=== PATIENT | male | born 1995 | race Caucasian/White ===

== ENCOUNTER 2022-04-21 18:44 | Inpatient (IN) | payer OTHER ==
[~2022-04-21] VITALS: Ht 175.3 cm; Wt 46.7 kg
[~2022-04-21 18:44] MED LIST: ACET-512 PO; ALBU0.0912 INH; ATRMDI IH; BACL10TA4 PO; BISA-213 RC; CHOL100013 PO; DOCU-299 PO; GABA400C PO; KEP500L GT; METO50TE2 PO; MULT-2246 PO; MUPI2CRE22 NS; SACC250C10 PO; TAMS0.4C96 PO
[2022-04-21 18:50] VITALS: BP 122/80
[2022-04-21 19:38] LABS: BASOPHILS % (AUTO) 0.2 % (0.0-2.0); EOSINOPHILS # (AUTO) 0.3 K/uL (0-0.4); EOSINOPHILS % (AUTO) 2.5 % (0.0-4.0); HEMOGLOBIN 14.2 g/dL (12.0-18.0); LYMPHOCYTES # (AUTO) 1.2 K/uL (2.0-11.5); LYMPHOCYTES % (AUTO) 9.4 % (20.5-51.1); MEAN CORPUSCULAR HEMOGLOBIN 27 pg (27-31); MEAN CORPUSCULAR HGB CONC 33 g/dL (33-37); MEAN CORPUSCULAR VOLUME 81.4 fL (80-94); MONOCYTES # (AUTO) 1.2 K/uL (0.8-1.0); MONOCYTES % (AUTO) 9.5 % (1.7-9.3); NEUTROPHILS # (AUTO) 10.1 K/uL (1.8-7.7); NEUTROPHILS % (AUTO) 78.4 % (42.2-75.2); PLATELET COUNT (AUTO) 322 K/uL (140-450); RED BLOOD CELL COUNT(AUTO) 5.29 MIL/uL (4.20-6.10); RED CELL DISTRIBUTION WIDTH 16.5 % (11.6-13.7); WHITE BLOOD COUNT (AUTO) 12.8 K/uL (4.8-10.8)
[2022-04-21 19:58] LABS: ALBUMIN 3.5 g/dL (3.4-5.0); ANION GAP 11.7 (8-16); CARBON DIOXIDE 29.2 mmol/L (21-32); CREATININE 0.5 mg/dL (0.6-1.3); POTASSIUM 3.9 mmol/L (3.5-5.1); TOTAL BILIRUBIN 0.2 mg/dL (0.0-1.0)
[2022-04-21] MEDS ORDERED: NACL 0.9% 1,000 ML IV ONE ×2 (20:05→22:25)
[2022-04-21] MEDS ORDERED: MORPHINE SULFATE 4 MG/ML SYR IVP ONE (20:05)
[2022-04-21] MEDS ORDERED: METOPROLOL 5 MG/5 ML VIAL IVP ONE (22:25)
[2022-04-21] MEDS ORDERED: oxyCODONE/APAP 5/325 MG 1 TAB TAB GT ONE (22:25)
[2022-04-21] MEDS ORDERED: levETIRAcetam 500 MG in NACL 0.9% 100 ML IV SCH (22:30)
[2022-04-21] MEDS ORDERED: levETIRAcetam 100 MG/ML ORASYR ONE (22:43)
[2022-04-21] MEDS ORDERED: levETIRAcetam 100 MG/ML VIAL IV ONE (22:43)
[2022-04-22] MEDS ORDERED: LORazepam 1 MG TAB PO ONE (00:25)
[2022-04-22] MEDS ORDERED: NACL 0.9% 1,000 ML IV ONE (01:25)
[2022-04-22 02:39] LABS: APPEARANCE,URINE HAZY (CLEAR); BILIRUBIN,URINE NEGATIVE (NEGATIVE); BLOOD, URINE 3+ (NEGATIVE); COLOR,URINE BROWN (YELLOW); LEUKOCYTE ESTERASE ,URINE 1+ (NEGATIVE); NITRITE, URINE NEGATIVE (NEGATIVE); UGLUCOSE NEGATIVE (NEGATIVE)
[2022-04-22 02:46] LABS: RBC,URINE TOO NUMEROUS TO COUN /HPF (0-5)
[2022-04-22] MEDS ORDERED: CEPHALEXIN SUSP. 250 MG/5 ML GT ONE (03:00)
[2022-04-22] MEDS ORDERED: NACL 0.9% 1,000 ML IV SCH (03:40)
[2022-04-22] MEDS ORDERED: NON-FORMULARY ITEM (Oxycodone HCl/Acetaminophen (Oxycodone-Acetaminophen 10-325) 1 TAB) PO SCH (03:40)
[2022-04-22] MEDS ORDERED: DOCUSATE SODIUM 100 MG GELCAP PO PRN (03:40)
[2022-04-22] MEDS ORDERED: ALBUTEROL HFA MDI 90 MCG/ACTUATION 8 GM INH PRN (03:40)
[2022-04-22] MEDS ORDERED: HYDROcodone/APAP 5/325 MG 1 TAB TAB PO PRN (03:40)
[2022-04-22] MEDS ORDERED: ONDANSETRON 4 MG/2 ML VIAL IVP PRN (03:40)
[2022-04-22] MEDS ORDERED: bisacodyL 10 MG SUPP RC PRN (03:40)
[2022-04-22] MEDS ORDERED: ZOLPIDEM 5 MG TAB PO PRN (03:40)
[2022-04-22] MEDS ORDERED: ACETAMINOPHEN 325 MG TAB PO PRN (03:40)
[2022-04-22] MEDS ORDERED: POTASSIUM CHLORIDE 10 MEQ TABER PO PRN (03:40)
[2022-04-22] MEDS ORDERED: LORazepam 1 MG TAB PO PRN (03:40)
[2022-04-22] MEDS ORDERED: CEPHALEXIN SUSP. 250 MG/5 ML ONE (03:48)
[2022-04-22] MEDS: GABAPENTIN 100 MG CAP PO SCH ×4 (05:00→21:00)
[2022-04-22] MEDS ORDERED: PIPERACILLIN/TAZOBACTAM 3.375 GM in DEXTROSE 5% 50 ML IV SCH (07:00)
[2022-04-22] MEDS ORDERED: BACLOFEN 10 MG TAB PO PRN (07:18)
[2022-04-22] MEDS ORDERED: ALBUTEROL 0.083% 2.5 MG/3 ML NEBU INH PRN (07:20)
[2022-04-22] MEDS ORDERED: oxyCODONE/APAP 5/325 MG 1 TAB TAB PO PRN (07:25)
[2022-04-22 08:46] VITALS: BP 119/67
[2022-04-22] MEDS ORDERED: SACCHAROMYCES BOULARDII PO SCH (09:00)
[2022-04-22 12:00] VITALS: BP 122/70
[2022-04-22] MEDS: NACL 0.9% 1,000 ML IV SCH ×2 (12:00→20:56)
[2022-04-22] MEDS: PIPERACILLIN/TAZOBACTAM 3.375 GM in DEXTROSE 5% 50 ML IV SCH ×3 (12:00→23:49)
[2022-04-22] MEDS: METOPROLOL 25 MG TAB PO SCH ×2 (12:30→20:53)
[2022-04-22] MEDS: levETIRAcetam 100 MG/ML ORASYR GT SCH ×2 (12:30→20:43)
[2022-04-22] MEDS: TAMSULOSIN 0.4 MG CAP PO SCH (12:30)
[2022-04-22] MEDS: DOCUSATE SODIUM 100 MG GELCAP PO SCH (12:30)
[2022-04-22] MEDS: LACTOBACILLUS RHAMNOSUS GG 1 EACH CAP PO SCH (12:30)
[2022-04-22] MEDS: ALBUTEROL SULFATE/IPRATROPIU 3 ML SOL IH SCH ×2 (14:44→19:14)
[2022-04-22] MEDS: Z-GUARD PASTE TP SCH ×2 (15:46→15:50)
[2022-04-22 17:09] VITALS: BP 120/66
[2022-04-22 21:02] VITALS: BP 138/78
[2022-04-23] MEDS: Z-GUARD PASTE TP SCH ×2 (00:24→13:36)
[2022-04-23 01:00] VITALS: BP 133/59
[2022-04-23] MEDS: GABAPENTIN 100 MG CAP PO SCH ×4 (05:19→21:19)
[2022-04-23] MEDS: PIPERACILLIN/TAZOBACTAM 3.375 GM in DEXTROSE 5% 50 ML IV SCH ×3 (05:22→17:26)
[2022-04-23 06:29] VITALS: BP 145/92
[2022-04-23] MEDS: NACL 0.9% 1,000 ML IV SCH ×3 (08:00→23:40)
[2022-04-23] MEDS: ALBUTEROL SULFATE/IPRATROPIU 3 ML SOL IH SCH ×3 (08:26→19:00)
[2022-04-23] MEDS: levETIRAcetam 100 MG/ML ORASYR GT SCH ×2 (10:41→21:19)
[2022-04-23] MEDS: TAMSULOSIN 0.4 MG CAP PO SCH (10:43)
[2022-04-23] MEDS: LACTOBACILLUS RHAMNOSUS GG 1 EACH CAP PO SCH (10:43)
[2022-04-23] MEDS: DOCUSATE SODIUM 100 MG GELCAP PO SCH (10:43)
[2022-04-23] MEDS: METOPROLOL 25 MG TAB PO SCH ×2 (10:43→21:19)
[2022-04-23 12:00] VITALS: BP 117/78
[2022-04-23 16:00] VITALS: BP 95/65
[2022-04-23 20:00] VITALS: BP 116/76
[2022-04-24] VITALS: BP 103/71
[2022-04-24] MEDS: PIPERACILLIN/TAZOBACTAM 3.375 GM in DEXTROSE 5% 50 ML IV SCH ×5 (01:51→23:30)
[2022-04-24] MEDS: Z-GUARD PASTE TP SCH ×2 (01:55→12:55)
[2022-04-24 04:00] VITALS: BP 100/70
[2022-04-24] MEDS: GABAPENTIN 100 MG CAP PO SCH ×3 (04:33→20:56)
[2022-04-24] MEDS: ALBUTEROL SULFATE/IPRATROPIU 3 ML SOL IH SCH ×2 (07:39→13:00)
[2022-04-24 08:00] VITALS: BP 120/76
[2022-04-24] MEDS: levETIRAcetam 100 MG/ML ORASYR GT SCH ×2 (09:33→20:55)
[2022-04-24] MEDS: LACTOBACILLUS RHAMNOSUS GG 1 EACH CAP PO SCH (09:33)
[2022-04-24] MEDS: DOCUSATE SODIUM 100 MG GELCAP PO SCH (09:33)
[2022-04-24] MEDS: TAMSULOSIN 0.4 MG CAP PO SCH (09:34)
[2022-04-24] MEDS: METOPROLOL 25 MG TAB PO SCH ×2 (09:34→20:56)
[2022-04-24 12:00] VITALS: BP 107/66
[2022-04-24] MEDS: NACL 0.9% 1,000 ML IV SCH (13:24)
[2022-04-24 16:00] VITALS: BP 130/71
[2022-04-24 20:00] VITALS: BP 120/84
[2022-04-25] VITALS: BP 126/79
[2022-04-25] MEDS: NACL 0.9% 1,000 ML IV SCH ×2 (00:08→10:00)
[2022-04-25] MEDS: Z-GUARD PASTE TP SCH (01:44)
[2022-04-25 04:00] VITALS: BP 142/68
[2022-04-25] MEDS: GABAPENTIN 100 MG CAP PO SCH (04:39)
[2022-04-25] MEDS: PIPERACILLIN/TAZOBACTAM 3.375 GM in DEXTROSE 5% 50 ML IV SCH ×2 (05:05→12:10)
[2022-04-25] MEDS: ALBUTEROL SULFATE/IPRATROPIU 3 ML SOL IH SCH ×2 (07:33→12:44)
[2022-04-25] MEDS: levETIRAcetam 100 MG/ML ORASYR GT SCH (08:29)
[2022-04-25] MEDS: TAMSULOSIN 0.4 MG CAP PO SCH (08:30)
[2022-04-25] MEDS: DOCUSATE SODIUM 100 MG GELCAP PO SCH (08:30)
[2022-04-25] MEDS: LACTOBACILLUS RHAMNOSUS GG 1 EACH CAP PO SCH (08:30)
[2022-04-25] MEDS: METOPROLOL 25 MG TAB PO SCH (08:31)
[2022-04-25 09:00] LABS: BASOPHILS % (AUTO) 0.7 % (0.0-2.0); EOSINOPHILS # (AUTO) 0.2 K/uL (0-0.4); EOSINOPHILS % (AUTO) 4.2 % (0.0-4.0); HEMATOCRIT 34.4 % (36-52); HEMOGLOBIN 11.5 g/dL (12.0-18.0); LYMPHOCYTES # (AUTO) 0.9 K/uL (2.0-11.5); LYMPHOCYTES % (AUTO) 14.3 % (20.5-51.1); MEAN CORPUSCULAR HEMOGLOBIN 27 pg (27-31); MEAN CORPUSCULAR HGB CONC 34 g/dL (33-37); MEAN CORPUSCULAR VOLUME 80.4 fL (80-94); MONOCYTES # (AUTO) 0.6 K/uL (0.8-1.0); MONOCYTES % (AUTO) 9.5 % (1.7-9.3); NEUTROPHILS # (AUTO) 4.3 K/uL (1.8-7.7); NEUTROPHILS % (AUTO) 71.3 % (42.2-75.2); PLATELET COUNT (AUTO) 341 K/uL (140-450); RED BLOOD CELL COUNT(AUTO) 4.27 MIL/uL (4.20-6.10); RED CELL DISTRIBUTION WIDTH 16.2 % (11.6-13.7)
[2022-04-25 09:54] LABS: ANION GAP 8.5 (8-16); CARBON DIOXIDE 27.8 mmol/L (21-32); CREATININE 0.4 mg/dL (0.6-1.3); PHOSPHORUS 3.9 mg/dL (2.5-4.9); POTASSIUM 3.3 mmol/L (3.5-5.1); TOTAL BILIRUBIN 0.2 mg/dL (0.0-1.0)
[2022-04-25 12:32] VITALS: BP 111/72
== END 2022-04-25 14:30 | DRG 466 ==
LOC: MED 18:44 → MTU 04-22 05:10
PROVIDERS: ADMIT Internal Medicine; ATTEND Internal Medicine
PROC: 02HV33Z Insertion of Infusion Device into Superior Vena Cava, Percutaneous Approach (ICD-10-PCS; principal; 2022-04-22)
PROC: B548ZZA Ultrasonography of Superior Vena Cava, Guidance (ICD-10-PCS; 2022-04-22)
DX: T83.098A Other mechanical complication of other urinary catheter, initial encounter (principal); A41.9 Sepsis, unspecified organism; G82.50 Quadriplegia, unspecified; J96.10 Chronic respiratory failure, unspecified whether with hypoxia or hypercapnia; R13.10 Dysphagia, unspecified; Z20.822 Contact with and (suspected) exposure to COVID-19; N39.0 Urinary tract infection, site not specified; Y83.8 Other surgical procedures as the cause of abnormal reaction of the patient, or of later complication, without mention of misadventure at the time of the procedure; N31.9 Neuromuscular dysfunction of bladder, unspecified; Z87.820 Personal history of traumatic brain injury; Y92.89 Other specified places as the place of occurrence of the external cause
CPT/HCPCS: 36415; 71045; 72192; 80053; 81001; 83605; 84100; 85025; 87040; 87086; 93005; 94640; 96361; 96365; 96375; 99291; J1953; J2270; J2543; J3490; J7030; J7060

== ENCOUNTER 2022-04-26 17:34 | Emergency (ER) | payer OTHER ==
[~2022-04-26] VITALS: Ht 167.6 cm; Wt 40.8 kg
[2022-04-26 17:35] VITALS: BP 121/78
--- NOTE | 2022-04-26 18:30 | NUR ---
27 y[place] [facility] [place] suprapubic cathether today. Pt placed in gown and cardiac monitor technician. PMH: Seizures, HTN, dysphagia, TBI, quadraplegic, trach dependent. JUANITAA
--- NOTE | 2022-04-26 19:20 | NUR ---
Pt report given to Taina. Transfer of care at this time.
[2022-04-26 19:37] VITALS: BP 109/77
--- NOTE | 2022-04-26 19:38 | NUR ---
pt lying comfortably in bed. vss. pt alert and awake
--- NOTE | 2022-04-26 20:08 | NUR ---
CALLED CHIDI LOPEZ RN TO INFORM HER THAT PATIENT WILL BE RETURNING.
--- NOTE | 2022-04-26 20:13 | NUR ---
[facility] AT BEDSIDE FOR TRANSPORT
--- NOTE | 2022-04-26 20:14 | NUR ---
Patient discharged with v/s stable. Written and verbal after care instructions given and explained. Ambulance Transport with by [facility]. All questions addressed prior to discharge. Advised to follow up with PMD.
== END 2022-04-26 20:14 | disposition home or self-care (01) ==
LOC: MED 17:34
DX: T83.018A Breakdown (mechanical) of other urinary catheter, initial encounter (principal); E11.9 Type 2 diabetes mellitus without complications; Z79.899 Other long term (current) drug therapy; Y84.6 Urinary catheterization as the cause of abnormal reaction of the patient, or of later complication, without mention of misadventure at the time of the procedure; Y92.89 Other specified places as the place of occurrence of the external cause
CPT/HCPCS: 51702; 99284

== ENCOUNTER 2022-10-27 18:22 | Inpatient (IN) | payer OTHER ==
[~2022-10-27] VITALS: Ht 165.1 cm; Wt 44.0 kg
[2022-10-27 18:26] VITALS: BP 105/66
[2022-10-27] MEDS ORDERED: NACL 0.9% 1,000 ML IV ONE (18:40)
[2022-10-27] MEDS ORDERED: ONDANSETRON 4 MG/2 ML VIAL IVP ONE (18:40)
[2022-10-27] MEDS ORDERED: MORPHINE SULFATE 4 MG/ML SYR IVP ONE (18:40)
--- NOTE | 2022-10-27 19:50 | NUR ---
Received pt from handoff. aox4 and on room air. vomit bag at bedside and within patients reach. diaper changed because pt said he urinated himself. mild excoriation noted i8n pelvic area. will check frequently to prevent furher breakdown. clarified with dr coral borja about his intent to cancel the need for urinanalysis and he confirmed and its just that he's having technical issues on officially cancelling it on the computer.
[2022-10-27 20:07] LABS: ALBUMIN 4.3 g/dL (3.4-5.0); ANION GAP 14.9 (8-16); CARBON DIOXIDE 26.9 mmol/L (21-32); CREATININE 0.5 mg/dL (0.6-1.3); POTASSIUM 3.8 mmol/L (3.5-5.1); TOTAL BILIRUBIN 0.6 mg/dL (0.0-1.0)
[2022-10-27 20:09] LABS: BASOPHILS % (AUTO) 0.8 % (0.0-2.0); EOSINOPHILS # (AUTO) 0.1 K/uL (0-0.4); EOSINOPHILS % (AUTO) 1.8 % (0.0-4.0); HEMATOCRIT 48.8 % (36-52); HEMOGLOBIN 16.9 g/dL (12.0-18.0); LYMPHOCYTES # (AUTO) 0.9 K/uL (2.0-11.5); LYMPHOCYTES % (AUTO) 17.2 % (20.5-51.1); MEAN CORPUSCULAR HEMOGLOBIN 29 pg (27-31); MEAN CORPUSCULAR HGB CONC 35 g/dL (33-37); MEAN CORPUSCULAR VOLUME 84.8 fL (80-94); MONOCYTES # (AUTO) 0.5 K/uL (0.8-1.0); MONOCYTES % (AUTO) 10.3 % (1.7-9.3); NEUTROPHILS # (AUTO) 3.6 K/uL (1.8-7.7); NEUTROPHILS % (AUTO) 69.9 % (42.2-75.2); PLATELET COUNT (AUTO) 311 K/uL (140-450); RED BLOOD CELL COUNT(AUTO) 5.75 MIL/uL (4.20-6.10); RED CELL DISTRIBUTION WIDTH 12.9 % (11.6-13.7); WHITE BLOOD COUNT (AUTO) 5.2 K/uL (4.8-10.8)
[2022-10-27] MEDS ORDERED: VANCOMYCIN 1,000 MG in DEXTROSE 5% 250 ML IV ONE (21:50)
[2022-10-27] MEDS ORDERED: CEFEPIME 1,000 MG in DEXTROSE 5% 50 ML IV ONE (21:50)
[2022-10-27] MEDS ORDERED: ONDANSETRON 4 MG/2 ML VIAL IVP PRN (22:10)
[2022-10-27] MEDS ORDERED: ACETAMINOPHEN 325 MG TAB PO PRN (22:10)
[2022-10-27] MEDS ORDERED: MORPHINE SULFATE 2 MG/ML SYR IVP PRN (22:10)
[2022-10-27] MEDS ORDERED: LORazepam 2 MG/ML VIAL IVP PRN (22:10)
[2022-10-27] MEDS ORDERED: VANCOMYCIN PER PHARMACY MC PRN (22:20)
[2022-10-27] MEDS ORDERED: VANCOMYCIN 1,000 MG in DEXTROSE 5% 250 ML IV SCH (22:29)
[2022-10-27] MEDS ORDERED: cefTRIAXone 1,000 MG VIAL ONE (22:31)
[2022-10-27] MEDS ORDERED: VANCOMYCIN 1,000 MG VIAL ONE (22:32)
[2022-10-27] MEDS ORDERED: CEFEPIME 1,000 MG VIAL ONE (22:33)
[2022-10-27] MEDS ORDERED: diphenhydrAMINE 50 MG/ML VIAL IVP ONE (22:45)
[2022-10-27] MEDS: NACL 0.9% 1,000 ML IV SCH (22:50)
[2022-10-27] MEDS ORDERED: INSULIN LISPRO SLIDING SCALE 100 UNITS/ML VIAL SUBQ PRN (23:00)
[2022-10-27] MEDS ORDERED: DEXTROSE 50% 50 ML SYR IVP PRN (23:00)
--- NOTE | 2022-10-28 04:34 | NUR ---
PT HAS BEEN STABLE THROUGHOUT SHIFT HOWEVER HAS REQUIRED 2L NC FOR DESATURATION. PT HAS HAD 2 BMS THICK LIQUID IN CONSISTENCY. HAS HAD 300 ML OF URINE OUTPUT WELL. EXCORIATION NOTED ON PERINIUM AREA WITH SOME SLIGHT BLEEDING FROM THE EPISODES OF URINATION AND STOOL IN DIAPER. ADVISED PT TO REMOVE DIAPER AND JUST REMAIN ON CHUCKS TO REDUCE FRICTION AND MOISTURE CONTACT WITH SKIN BUT PATIENT PREFERS IT. PROMOTE Q2 TURNING AND PT HAS RETURN DEMONSTRATED. ALSO CONTINUES TO USE VOMIT BAG TO SPIT SPUTUM IN WHICH OCCURS DURING REPOSITIONING. AOX4 AND CALM AND COOPERATIVE AFFECT
[2022-10-28 06:26] LABS: BASOPHILS % (AUTO) 0.2 % (0.0-2.0); EOSINOPHILS # (AUTO) 0.1 K/uL (0-0.4); EOSINOPHILS % (AUTO) 0.6 % (0.0-4.0); HEMATOCRIT 49.9 % (36-52); LYMPHOCYTES # (AUTO) 0.7 K/uL (2.0-11.5); LYMPHOCYTES % (AUTO) 7.7 % (20.5-51.1); MEAN CORPUSCULAR HEMOGLOBIN 30 pg (27-31); MEAN CORPUSCULAR HGB CONC 34 g/dL (33-37); MEAN CORPUSCULAR VOLUME 86.6 fL (80-94); MONOCYTES # (AUTO) 0.8 K/uL (0.8-1.0); MONOCYTES % (AUTO) 8.4 % (1.7-9.3); NEUTROPHILS % (AUTO) 83.1 % (42.2-75.2); PLATELET COUNT (AUTO) 281 K/uL (140-450); RED BLOOD CELL COUNT(AUTO) 5.76 MIL/uL (4.20-6.10); WHITE BLOOD COUNT (AUTO) 9.6 K/uL (4.8-10.8)
[2022-10-28] MEDS: NACL 0.9% 1,000 ML IV SCH ×3 (06:50→22:10)
[2022-10-28 06:53] LABS: ALBUMIN 3.9 g/dL (3.4-5.0); ANION GAP 14.8 (8-16); CARBON DIOXIDE 22.4 mmol/L (21-32); CREATININE 0.8 mg/dL (0.6-1.3); MAGNESIUM 2.2 mg/dL (1.8-2.4); POTASSIUM 4.2 mmol/L (3.5-5.1); TOTAL BILIRUBIN 0.6 mg/dL (0.0-1.0)
--- NOTE | 2022-10-28 07:57 | NUR ---
Patient will be admitted to care of MD BARAHONA. Admited to M/S. Will go to room 106A. Belongings list completed. Report to MENA COFFMAN.
[2022-10-28] MEDS: BLOOD GLUCOSE MONITORING 1 DEV DEV FS SCH ×4 (08:07→21:56)
--- NOTE | 2022-10-28 09:03 | NUR ---
PATIENT HAS BEEN SCREENED AND CATEGORIZED HIGH NUTRITION RISK. PATIENT WILL BE SEEN WITHIN 1-2 DAYS OF ADMISSION. / REVIEWED BY BORA FREIRE RD
[2022-10-28] MEDS: VANCOMYCIN 750 MG in DEXTROSE 5% 250 ML IV SCH ×2 (09:40→23:09)
[2022-10-28 10:07] VITALS: BP 127/101
[2022-10-28 12:00] VITALS: BP 108/65
--- NOTE | 2022-10-28 14:40 | NUR ---
THIS IS AN ADMISSION OF A 27 YEAR OLD MALE UNDER THE CARE OF DOCTOR BARAHONA FOR TOE CELLULITIS.
--- NOTE | 2022-10-28 15:56 | NUR ---
10/28/22 RD INITIAL ASSESSMENT COMPLETED PLEASE REFER TO NUTRITION ASSESSMENT UNDER CARE ACTIVITY FOR ESTIMATED NUTRITIONAL NEEDS. 1. CONTINUE CCHO 60 GM DIET TOLERATED 2. RECOMMEND GLUCERNA BID -PROVIDES 440 KCAL AND [address] TO FOLLOW-UP 3-5 DAYS, MODERATE RISK REVIEWED BY BORA FREIRE RD
[2022-10-28 16:00] VITALS: BP 117/69
[2022-10-28] MEDS ORDERED: SEVOFLURANE 250 ML BTL INH ONE (18:45)
--- NOTE | 2022-10-28 19:00 | NUR ---
RECEIVED ENDORSEMENT FROM MENA COFFMAN (REGISTRY), PATIENT WAS STABLE DURING SHIFT REPORT. PATIENT WAS ABLE TO RESPOND TO HIS NAME AND PLACE. PATIENT WAS FEEDING HIMSELF DINNER. PATIENT WAS ON ROOM AIR SATURATING AT 95%. NO NOTED RESPIRATORY DISTRESS. NO NOTED S/S OF PAIN/DISCOMFORT AT THIS TIME. AWAITING DR NELSON FOR SURGICAL CONSENT. NURSING WILL FREQUENT THE ROOM IN ANTICIPATION FOR NEEDS. CALL LIGHT WITHIN REACH AND SIDE RAILS UP X 3 FOR SAFETY AND COMFORT. [id number]
[2022-10-28 20:00] VITALS: BP 117/74
--- NOTE | 2022-10-28 21:00 | NUR ---
OVER THE PHONE CONSENT WAS DONE WITH DR NELSON AND GERHARD COFFMAN FOR BILATERAL TOE REMOVAL AND INFECTED TUMORS SCHEDULED FOR TOMORROW. SPOKE WITH DUANE GAMEZSOURAV PATIENT MOTHER AND SHE WAS ONLY AWARE THAT PATIENT WAS SENT TO OUR FACILITY FOR MEDICAL ASSISTANCE. ORDERS ARE ACKNOWLEDGE FOR NPO AFTER MIDNIGHT, ORDERS FOR AN EKG, AND COVID 19 RAPID TESTING. [email or web address]
--- NOTE | 2022-10-28 23:09 | NUR ---
SCHEDULED IV VANCOCIN GIVEN ORDERED. PATIENT IS AWAKE.
--- NOTE | 2022-10-29 01:30 | NUR ---
PATIENT IN BED ASLEEP NO NOTED S/S OF PAIN. NO S/S OF RESPIRATORY DISTRESS. CALL LIGHT WITHIN REACH. SIDE RAILS UP X 3. [id number]
[2022-10-29 04:00] VITALS: BP 120/84
--- NOTE | 2022-10-29 05:18 | NUR ---
PATIENT'S PREOP CHECK LIST WAS COMPLETED. PATIENT HAS CONSENT IN THE FRONT OF THE CHART. PATIENT REMAINS CLEAN AND DRY. CALL LIGHT WITHIN REACH AND SIDERAILS UP X 3. [id number]
[2022-10-29] MEDS: NACL 0.9% 1,000 ML IV SCH ×3 (06:25→22:12)
--- NOTE | 2022-10-29 07:09 | NUR ---
ENDORSED PATIENT TO ANDRZEJ COFFMAN, PATIENT WAS STABLE WITH CONSENT AND PREOP ASSESSMENT COMPLETED. [email or web address]
--- NOTE | 2022-10-29 07:29 | NUR ---
GOT REPORT FROM NIGHT NURSE, PT IS AWAKE NO SOB .[id number]
[2022-10-29] MEDS: BLOOD GLUCOSE MONITORING 1 DEV DEV FS SCH ×4 (07:30→20:41)
[2022-10-29 07:33] LABS: ANION GAP 13.6 (8-16); CARBON DIOXIDE 22.8 mmol/L (21-32); CREATININE 0.6 mg/dL (0.6-1.3); POTASSIUM 3.4 mmol/L (3.5-5.1)
--- NOTE | 2022-10-29 07:50 | NUR ---
GONE TO SURGERY PLANED.[id number]
[2022-10-29 08:00] VITALS: BP 117/74
[2022-10-29 08:23] LABS: BASOPHILS # (AUTO) 0.1 K/uL (0.00-0.22); BASOPHILS % (AUTO) 1.1 % (0.0-2.0); EOSINOPHILS # (AUTO) 0.1 K/uL (0-0.4); EOSINOPHILS % (AUTO) 1.6 % (0.0-4.0); HEMATOCRIT 46.3 % (36-52); LYMPHOCYTES # (AUTO) 0.6 K/uL (2.0-11.5); LYMPHOCYTES % (AUTO) 12.3 % (20.5-51.1); MEAN CORPUSCULAR HEMOGLOBIN 30 pg (27-31); MEAN CORPUSCULAR HGB CONC 35 g/dL (33-37); MEAN CORPUSCULAR VOLUME 85.4 fL (80-94); MONOCYTES # (AUTO) 0.8 K/uL (0.8-1.0); MONOCYTES % (AUTO) 16.8 % (1.7-9.3); NEUTROPHILS # (AUTO) 3.3 K/uL (1.8-7.7); NEUTROPHILS % (AUTO) 68.2 % (42.2-75.2); PLATELET COUNT (AUTO) 243 K/uL (140-450); RED BLOOD CELL COUNT(AUTO) 5.41 MIL/uL (4.20-6.10); RED CELL DISTRIBUTION WIDTH 12.8 % (11.6-13.7); WHITE BLOOD COUNT (AUTO) 4.9 K/uL (4.8-10.8)
[2022-10-29] MEDS ORDERED: BUPIVACAINE-MPF 0.5% 10 ML VIAL INJ ONE (08:27)
[2022-10-29] MEDS ORDERED: LIDOCAINE/EPI MPF 2%1:200000 10 ML VIAL INJ ONE (08:27)
[2022-10-29] MEDS ORDERED: LIDOCAINE MPF 2% 100 MG/5 ML VIAL INJ ONE (08:48)
[2022-10-29] MEDS ORDERED: fentaNYL citrate 0.05 MG/ML VIAL ONE (08:52)
[2022-10-29] MEDS: VANCOMYCIN 750 MG in DEXTROSE 5% 250 ML IV SCH ×2 (09:00→20:34)
[2022-10-29] MEDS ORDERED: PROPOFOL 200 MG/20 ML VIAL IV ONE (09:33)
--- NOTE | 2022-10-29 10:39 | NUR ---
PT BACK FROM SURGERY V.S STABLE AND STARTED IN THE SCHEDULED ANTIBIOTIC.[id number]
[2022-10-29 12:00] VITALS: BP 118/80
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
[2022-10-29 16:00] VITALS: BP 122/77
--- NOTE | 2022-10-29 18:33 | NUR ---
DR NELSON CAME TO SEE THE PATIENT AND SAID THAT THE DRESSING SHOULD BE CHANGED TOMORROW AND DAILY UNLESS IT SOILED SOON WITH NON STICK OR THE VASELINE GAUZE FIRST ON THE WOUND TO PREVENT STICKING AND RAPE IT WITH BETADINE AND DRESSING ON THE TOP IN BILATERAL TOES. HE ALSO SAID THAT ONCE HIS WBC IS WITHIN NORMAL LIMIT HE CAN BE DISCHARGED BACK TO WHERE HE CAME FROM AND THAT THEY CAN ARRANGE THE TRANSPORTATION WHICH WOULD BE PAID BY INSURANCE . I WILL REPORT THIS TO THE NURSE VAUGHN KHAN
--- NOTE | 2022-10-29 19:05 | NUR ---
RECEIVED PT FROM MORNING SHIFT NURSE. PT IS SITTING ON THE BED, EATING HIS DINNER. PT IS AOX2-3, BEDBOUND, ABLE TO VERBALIZE NEEDS AND ABLE TO FOLLOW COMMANDS. PT [facility]OM AIR AND [facility]. PT HAS IV ON LEFT AC GAUGE 20 RUNNING WITH D5NS AT 125 ML/HR. PT SKIN IS INTACT. PT DENIES PAIN. NO S/S OF RESPIRATORY DISTRESS NOTED. ALL SAFETY MEASURES IMPLEMENTED. BED IN LOW POSITION, BED WHEELS ON LOCK AND CALL LIGHT WITHIN REACH.
[2022-10-29 20:00] VITALS: BP 122/77
--- NOTE | 2022-10-29 20:34 | NUR ---
SCHEDULED AND PRESCRIBED MEDICATION WAS GIVEN TO PT PER MD ORDER. ALL SAFETY MEASURES IMPLEMENTED. BED IN LOW POSITION, BED WHEELS ON LOCK AND CALL LIGHT WITHIN REACH.
--- NOTE | 2022-10-29 20:41 | NUR ---
T BLOOD SUGAR IS 109. NO INSULIN COVERAGE NEEDED.
--- NOTE | 2022-10-29 22:00 | NUR ---
PT WAS GIVEN CUP OF WATER PER PT REQUEST. NO COMPLAIN OF PAIN AT THIS TIME. NO S/S OF RESPIRATORY DISTRESS NOTED. ALL SAFETY MEASURES IMPLEMENTED. BED IN LOW POSITION, BED WHEELS ON LOCK AND CALL LIGHT WITHIN REACH.
[2022-10-30] VITALS: BP 123/73
--- NOTE | 2022-10-30 | NUR ---
PT IS ON SLEEP. CHEST RISE AND FALL SYMMETRICALLY NOTED. RESPIRATION IS EVEN AND UNLABORED. ALL SAFETY MEASURES IMPLEMENTED. BED IN LOW POSITION, BED WHEELS ON LOCK AND CALL LIGHT WITHIN REACH.
--- NOTE | 2022-10-30 02:00 | NUR ---
CHECKED PT, STILL ON SLEEP. CHEST RISE AND FALL SYMMETRICALLY NOTED. RESPIRATION IS EVEN AND UNLABORED. ALL SAFETY MEASURES IMPLEMENTED. BED IN LOW POSITION, BED WHEELS ON LOCK AND CALL LIGHT WITHIN REACH.
[2022-10-30 04:00] VITALS: BP 124/74
--- NOTE | 2022-10-30 04:00 | NUR ---
MORNING CARE WAS DONE TO PT. CHANGED GOWN, LINENS AND CHUCKS. NO COMPLAIN OF PAIN AT THIS TIME. NO S/S OF RESPIRATORY DISTRESS NOTED. ALL SAFETY MEASURES IMPLEMENTED. BED IN LOW POSITION, BED WHEELS ON LOCK AND CALL LIGHT WITHIN REACH.
[2022-10-30] MEDS: NACL 0.9% 1,000 ML IV SCH ×3 (06:10→22:16)
[2022-10-30] MEDS: BLOOD GLUCOSE MONITORING 1 DEV DEV FS SCH ×4 (06:36→21:12)
--- NOTE | 2022-10-30 06:36 | NUR ---
PT BLOOD GLUCOSE IS 80. NO INSULIN COVERAGE NEEDED. ALL SAFETY MEASURES IMPLEMENTED. BED IN LOW POSITION, BED WHEELS ON LOCK AND CALL LIGHT WITHIN REACH.
[2022-10-30 07:11] LABS: BASOPHILS % (AUTO) 0.4 % (0.0-2.0); EOSINOPHILS # (AUTO) 0.1 K/uL (0-0.4); EOSINOPHILS % (AUTO) 1.7 % (0.0-4.0); HEMATOCRIT 42.4 % (36-52); HEMOGLOBIN 13.9 g/dL (12.0-18.0); LYMPHOCYTES # (AUTO) 0.9 K/uL (2.0-11.5); LYMPHOCYTES % (AUTO) 15.7 % (20.5-51.1); MEAN CORPUSCULAR HEMOGLOBIN 29 pg (27-31); MEAN CORPUSCULAR HGB CONC 33 g/dL (33-37); MEAN CORPUSCULAR VOLUME 87.8 fL (80-94); MONOCYTES # (AUTO) 0.8 K/uL (0.8-1.0); MONOCYTES % (AUTO) 13.7 % (1.7-9.3); NEUTROPHILS % (AUTO) 68.5 % (42.2-75.2); PLATELET COUNT (AUTO) 257 K/uL (140-450); RED BLOOD CELL COUNT(AUTO) 4.83 MIL/uL (4.20-6.10); RED CELL DISTRIBUTION WIDTH 12.8 % (11.6-13.7); WHITE BLOOD COUNT (AUTO) 5.8 K/uL (4.8-10.8)
[2022-10-30 07:13] LABS: ANION GAP 13.3 (8-16); CARBON DIOXIDE 24.2 mmol/L (21-32); CREATININE 0.5 mg/dL (0.6-1.3); POTASSIUM 3.5 mmol/L (3.5-5.1)
--- NOTE | 2022-10-30 07:41 | NUR ---
PT IS STABLE. NO ACUTE EVENTS THROUGHOUT THE NIGHT.NO S/SX OF DISTRESS AT THIS MOMENT.ALL NEEDS ATTENDED. ALL PRECAUTIONS IN PLACE. CALL LIGHT WITHIN REACH. ENDORSED TO DAY NURSE.
--- NOTE | 2022-10-30 07:42 | NUR ---
RECEIVED REPORT FROM CIRCUS RIDER NURSE, VIRI, FOR CONTINUITY OF CARE. PT IN BED RESTING AT THIS TIME. RESPIRATIONS ARE EVEN AND UNLABORED ON ROOM AIR. NO SIGNS OF DISTRESS NOTED. PT IS ALERT AND ORIENTED X3, ABLE TO VERBALIZE BASIC NEEDS. NO SIGNS OF PAIN OR DISCOMFORT NOTED. CALL LIGHT WITHIN REACH. ALL SAFETY MEASURES IN PLACE.
[2022-10-30 08:00] VITALS: BP 134/90
--- NOTE | 2022-10-30 08:20 | NUR ---
IV ABX ADMINISTERED BY MEGHNA LEVI.
[2022-10-30] MEDS: VANCOMYCIN 750 MG in DEXTROSE 5% 250 ML IV SCH ×2 (09:18→20:08)
--- NOTE | 2022-10-30 10:03 | NUR ---
PT HAS DISCHARGE ORDER. PT MADE AWARE. PT STATES HE IS HAPPY WITH DISCHARGE. AWAITING TRANSPORTATION.
--- NOTE | 2022-10-30 12:03 | NUR ---
WENT TO CHECK ON PT. FAMILY AT BEDSIDE. PT EATING AT THIS TIME. PT TOLERATING WELL.
--- NOTE | 2022-10-30 15:19 | NUR ---
CHARGE NURSE INFORMED ME THAT LAB CALLED WITH CRITICAL. PER LAB, PT IS POSITIVE FOR MRSA IN THE NARES. MRSA PROTOCOL STARTED. TECHNICAL PUBLICATIONS MANAGER MADE AWARE. PT IS DUE TO DISCHARGE TODAY.
[2022-10-30] MEDS ORDERED: CHLORHEXADINE GLUC 2% CLOTH TP SCH ×2 (15:45→17:00)
[2022-10-30] MEDS ORDERED: MUPIROCIN CA NASAL 2% 1GM TUBE NS SCH ×2 (15:45→17:00)
--- NOTE | 2022-10-30 15:52 | NUR ---
DC PLANNING [place] [facility] [place]OM 9B, ACCEPTING DR; DR. ALVARADO, CALL REPORT NUMBER [phone]. [facility] TRANSPORTATION REQUEST FORM FAXED TO [phone]. NURSE STATION CONTACT INFO PROVIDED ON REQUEST FORM. P/UP REQUESTED FOR 5PM P/UP. ENDORSED TO CHARGE NURSE. Addendum: 10/30/22 at 1647 by Pao HEDRICK OUTREACHED TO [facility] TRANSPORT TO FOLLOW UP ON P/UP TIME. SPOKE WITH JERARDO WHO REPORTS TRANSPORTATION IS STILL PENDING AND TO CALL BACK, , IN AN HOUR IF NO UPDATE HAS BEEN PROVIDED. IF AFTER HOURS TRANSPORTATION CAN BE ARRANGED WITH CALL THE CAR AT [phone]. ENDORSED TO PT NURSE
[2022-10-30 16:00] VITALS: BP 122/78
--- NOTE | 2022-10-30 16:20 | NUR ---
CALLED [facility] TO GIVE REPORT. SPOKE WITH LAURIE. AWAITING TRANSPORTATION.
[2022-10-30] MEDS ORDERED: MUPI2CRE22 TP (16:29)
--- NOTE | 2022-10-30 16:51 | NUR ---
RECEIVED CALL FROM JASON, INFORMED THAT TRANSPORTATION IS STILL PENDING. SW ASKED STAFF TO FOLLOW UP WITH TRANSPORTATION IN 1 HR.
--- NOTE | 2022-10-30 17:05 | NUR ---
ALL DISCHARGE PAPERWORK DONE. INFORMED PT MOM REGARDING DISCHARGE PLAN. CONTINUE TO AWAIT TRANSPORTATION UPDATE.
--- NOTE | 2022-10-30 19:02 | NUR ---
CALLED [facility] TRANSP[facility] FOR FOLLOW UP ON PT TRANSPORTATION. ON HOLD FOR 15 MIN. SPOKE WITH JERARDO. PER JERARDO, NO INFORMATION CAN BE GIVEN WITHOUT NPI NUMBER. NPI NUMBER NOT ON MY SW OR CM NOTES. UNABLE TO GET UPDATE ON TRANSPORTATION. CHARGE NURSE MADE AWARE.
--- NOTE | 2022-10-30 19:22 | NUR ---
ENDORSED PT TO AUTOMATION CONTROLS SPECIALIST NURSEVIRI, FOR CONTINUITY OF CARE. PT IS STABLE. ENDORSED DISCHARGE TO AUTOMATION CONTROLS SPECIALIST NURSE.
--- NOTE | 2022-10-30 19:23 | NUR ---
RECEIVED PT FROM MORNING SHIFT NURSE. PT IS LYING ON THE BED, WATCHING TV. PT IS AOX3-4, BEDBOUND, ABLE TO VERBALIZE NEEDS AND ABLE TO FOLLOW COMMANDS. PT IS ON ROOM AIR AND ON CCHO DIET. PT HAS IV ON LEFT AC GAUGE 20 RUNNING WITH NS AT 125 ML/HR. PT HAS G-TUBE AND HEALED TRACH. PT HAS DISCHARGE ORDER BUT NEEDS NPI NUMBER. PT SKIN IS INTACT. PT DENIES PAIN AT THIS TIME. NO S/S OF RESPIRATORY DISTRESS NOTED. ALL SAFETY MEASURES IMPLEMENTED. BED IN LOW POSITION, BED WHEELS ON LOCK AND CALL LIGHT WITHIN REACH.
--- NOTE | 2022-10-30 20:00 | NUR ---
INSERTED NEW IV TO PT ON LEFT FOREARM GAUGE 22. IV IS NOW PATENT AND INTACT.
--- NOTE | 2022-10-30 21:12 | NUR ---
PT BLOOD GLUCOSE IS 111. NO INSULIN COVERAGE NEEDED.
--- NOTE | 2022-10-30 22:00 | NUR ---
TRANSPORTATION WAS ARRIVED BUT NEEDS NPI NUMBER BEFORE DISCHARGE. NO NPI NUMBER YET.
[2022-10-31] VITALS: BP 125/85
--- NOTE | 2022-10-31 | NUR ---
PT IS SLEEPING. CHEST RISE AND FALL SYMMETRICALLY NOTED. RESPIRATION IS EVEN AND UNLABORED.ALL SAFETY MEASURES IMPLEMENTED. BED IN LOW POSITION, BED WHEELS ON LOCK AND CALL LIGHT WITHIN REACH.
--- NOTE | 2022-10-31 02:00 | NUR ---
CHECKED THE PT STILL SLEEPING. CHEST RISE AND FALL SYMMETRICALLY NOTED. RESPIRATION IS EVEN AND UNLABORED.ALL SAFETY MEASURES IMPLEMENTED. BED IN LOW POSITION, BED WHEELS ON LOCK AND CALL LIGHT WITHIN REACH.
--- NOTE | 2022-10-31 04:00 | NUR ---
MORNING CARE WAS DONE TO PT. CHANGED LINENS, GOWNS AND CHUCKS. NO COMPLAIN OF PAIN AT THIS TIME. NO S/S OF RESPIRATORY DISTRESS NOTED. ALL SAFETY MEASURES IMPLEMENTED. BED IN LOW POSITION, BED WHEELS ON LOCK AND CALL LIGHT WITHIN REACH.
[2022-10-31] MEDS: NACL 0.9% 1,000 ML IV SCH (06:11)
[2022-10-31] MEDS: BLOOD GLUCOSE MONITORING 1 DEV DEV FS SCH ×2 (06:30→11:30)
--- NOTE | 2022-10-31 06:30 | NUR ---
PT BLOOD GLUCOSE IS 77. NO INSULIN COVERAGE NEEDED.
[2022-10-31 06:55] LABS: BASOPHILS % (AUTO) 0.5 % (0.0-2.0); EOSINOPHILS # (AUTO) 0.1 K/uL (0-0.4); EOSINOPHILS % (AUTO) 1.4 % (0.0-4.0); HEMATOCRIT 43.2 % (36-52); HEMOGLOBIN 14.6 g/dL (12.0-18.0); LYMPHOCYTES # (AUTO) 0.9 K/uL (2.0-11.5); LYMPHOCYTES % (AUTO) 14.4 % (20.5-51.1); MEAN CORPUSCULAR HEMOGLOBIN 29 pg (27-31); MEAN CORPUSCULAR HGB CONC 34 g/dL (33-37); MEAN CORPUSCULAR VOLUME 86.7 fL (80-94); MONOCYTES # (AUTO) 0.8 K/uL (0.8-1.0); MONOCYTES % (AUTO) 13.1 % (1.7-9.3); NEUTROPHILS # (AUTO) 4.3 K/uL (1.8-7.7); NEUTROPHILS % (AUTO) 70.6 % (42.2-75.2); PLATELET COUNT (AUTO) 255 K/uL (140-450); RED BLOOD CELL COUNT(AUTO) 4.98 MIL/uL (4.20-6.10); RED CELL DISTRIBUTION WIDTH 12.9 % (11.6-13.7)
[2022-10-31 07:20] LABS: ANION GAP 9.9 (8-16); CARBON DIOXIDE 25.7 mmol/L (21-32); CREATININE 0.7 mg/dL (0.6-1.3); POTASSIUM 3.6 mmol/L (3.5-5.1)
[2022-10-31 08:00] VITALS: BP 118/70
--- NOTE | 2022-10-31 08:00 | NUR ---
RECEIVED REPORT FROM NATURAL HISTORY COLLECTIONS CURATOR FOR CONTINUITY OF CARE. PATIENT ALERT ORIENTED X4, NOT IN A Y DISTRESS NOTED.DENIES PAIN. IV INFUSING WELL. CALL LIGHT WITHIN REACH. CONTACT ISOLATION OBSERVED. NEEDS ATTENDED. WILL CONTINUE TO MONITOR.
[2022-10-31] MEDS ORDERED: VANCOMYCIN 1,000 MG in DEXTROSE 5% 250 ML IV SCH (09:00)
--- NOTE | 2022-10-31 11:50 | NUR ---
REPORT GIVEN TO JASON. NOTIFIED MOTHER REGARDING TRANSFER. WILL CONTINUE TO MONITOR.
--- NOTE | 2022-10-31 12:00 | NUR ---
DISCHARGED PATIENT TO [facility] [place], TRANSPORT HERE. PATIENT IN STABLE CONDITION.
== END 2022-10-31 12:00 | disposition home or self-care (01) | DRG 383 ==
LOC: MED 18:22 → MTU 20:20
PROVIDERS: ADMIT Hospitalist; ATTEND Hospitalist
PROC: 0HDRXZZ Extraction of Toe Nail, External Approach (ICD-10-PCS; 2022-10-29)
PROC: 0HBRXZZ Excision of Toe Nail, External Approach (ICD-10-PCS; 2022-10-29)
PROC: 0HBRXZZ Excision of Toe Nail, External Approach (ICD-10-PCS; 2022-10-29)
PROC: 0HDRXZZ Extraction of Toe Nail, External Approach (ICD-10-PCS; principal; 2022-10-29 08:30)
DX: L08.9 Local infection of the skin and subcutaneous tissue, unspecified (principal); G82.20 Paraplegia, unspecified; E46 Unspecified protein-calorie malnutrition; L03.031 Cellulitis of right toe; E11.9 Type 2 diabetes mellitus without complications; I10 Essential (primary) hypertension; Z68.1 Body mass index [BMI] 19.9 or less, adult; L03.032 Cellulitis of left toe; Z20.822 Contact with and (suspected) exposure to COVID-19
CPT/HCPCS: 36415; 73660; 80048; 80053; 80202; 82948; 83690; 83735; 85025; 85651; 86140; 87040; 87081; 88304; 93005; 96365; 96368; 96375; 99285; J0692; J0696; J1200; J1815; J2001; J2704; J3010; J3370; J3490; J7060; Q0092